=== PATIENT | male | born 1950 | race Caucasian/White ===

== ENCOUNTER → 2018-05-25 | Outpatient (CLI) | payer OTHER | END | disposition home or self-care (01) | LOC: OIH 14:48 | PROVIDERS: ATTEND Internal Medicine | DX: I10 Essential (primary) hypertension (principal); M47.815 Spondylosis without myelopathy or radiculopathy, thoracolumbar region | CPT/HCPCS: 71046 ==

== ENCOUNTER → 2019-04-29 | Outpatient (CLI) | payer OTHER | END | disposition home or self-care (01) | LOC: OIH 10:40 | PROVIDERS: ATTEND Internal Medicine | DX: I10 Essential (primary) hypertension (principal) | CPT/HCPCS: 71046 ==

== ENCOUNTER → 2019-05-22 | Outpatient (CLI) | payer OTHER | END | disposition home or self-care (01) | LOC: OIH 15:20 | PROVIDERS: ATTEND Internal Medicine | DX: M47.26 Other spondylosis with radiculopathy, lumbar region (principal); M25.78 Osteophyte, vertebrae; M48.061 Spinal stenosis, lumbar region without neurogenic claudication | CPT/HCPCS: 72100 ==

== ENCOUNTER → 2020-06-29 | Outpatient (CLI) | payer OTHER | END | disposition home or self-care (01) | LOC: OIH 09:56 | PROVIDERS: ATTEND Internal Medicine | DX: M47.27 Other spondylosis with radiculopathy, lumbosacral region (principal); M51.37 Other intervertebral disc degeneration, lumbosacral region; M48.07 Spinal stenosis, lumbosacral region | CPT/HCPCS: 72100 ==

== ENCOUNTER → 2020-08-17 | Outpatient (CLI) | payer OTHER | END | disposition home or self-care (01) | LOC: RAH 08:18 | PROVIDERS: ATTEND Internal Medicine | DX: M47.27 Other spondylosis with radiculopathy, lumbosacral region (principal); M48.061 Spinal stenosis, lumbar region without neurogenic claudication | CPT/HCPCS: 72148 ==

== ENCOUNTER → 2020-11-19 | Outpatient (CLI) | payer OTHER | END | disposition home or self-care (01) | LOC: RAH 12:32 | PROVIDERS: ATTEND Internal Medicine | DX: Z09 Encounter for follow-up examination after completed treatment for conditions other than malignant neoplasm (principal); M43.26 Fusion of spine, lumbar region; Z98.1 Arthrodesis status | CPT/HCPCS: 72131 ==

== ENCOUNTER → 2023-02-07 | Outpatient (CLI) | payer OTHER | END | disposition home or self-care (01) | LOC: RAH 09:05 | PROVIDERS: ATTEND Orthopaedic Surgery | DX: M48.02 Spinal stenosis, cervical region (principal); M47.816 Spondylosis without myelopathy or radiculopathy, lumbar region; M48.061 Spinal stenosis, lumbar region without neurogenic claudication; M50.30 Other cervical disc degeneration, unspecified cervical region; Z98.1 Arthrodesis status | CPT/HCPCS: 72141; 72148 ==

== ENCOUNTER → 2023-03-09 | Outpatient (CLI) | payer OTHER | END | disposition home or self-care (01) | LOC: RAH 13:27 | PROVIDERS: ATTEND Internal Medicine | DX: I10 Essential (primary) hypertension (principal) | CPT/HCPCS: 71046 ==

== ENCOUNTER → 2023-03-13 | Outpatient (CLI) | payer OTHER | END | disposition home or self-care (01) | LOC: RAH 12:50 | PROVIDERS: ATTEND Orthopaedic Surgery | DX: M47.816 Spondylosis without myelopathy or radiculopathy, lumbar region (principal); Z98.1 Arthrodesis status; M54.50 Low back pain, unspecified; M48.07 Spinal stenosis, lumbosacral region | CPT/HCPCS: 72131 ==

== ENCOUNTER → 2023-06-16 | Outpatient (CLI) | payer OTHER | END | disposition home or self-care (01) | LOC: RAH 09:20 | DX: M48.07 Spinal stenosis, lumbosacral region (principal); Z98.1 Arthrodesis status | CPT/HCPCS: 72100 ==

== ENCOUNTER → 2023-09-11 | Outpatient (CLI) | payer OTHER | END | disposition home or self-care (01) | LOC: RAH 12:33 | PROVIDERS: ATTEND Orthopaedic Surgery | DX: M41.85 Other forms of scoliosis, thoracolumbar region (principal); Z98.890 Other specified postprocedural states; Z98.1 Arthrodesis status | CPT/HCPCS: 72082 ==

== ENCOUNTER → 2024-06-04 | Outpatient (CLI) | payer OTHER ==
--- NOTE | 2024-06-04 14:49 | HMCIMG ---
Exam Type: CT LUMBAR SPINE W/O CONTRAST Clinical Information: Arthrodesis Comparison: None Findings: Status post posterior fusion of the entire lumbar spine and fusion L1-L5 with adequate postoperative alignment. Severe osteopenia. No acute fractures or dislocations. No other abnormalities. IMPRESSION: Postoperative changes and osteopenia.
--- NOTE | 2024-06-04 16:00 | HMCIMG ---
Exam Type: MR SPINAL CANAL, LUMBAR WO CON Clinical Information: Z98.1 Arthrodesis status Comparison: None Findings: Status post posterior fusion of the entire lumbar spine and fusion L1-L5 discs with adequate postoperative alignment. Severe osteopenia. No acute fractures or dislocations. No other abnormalities. Disc spaces are adequately aligned without disc protrusions or extrusions. No obvious spinal canal abnormalities are seen, although the canal and the neural foramina at all levels are partially obscured by metallic blooming artifact. IMPRESSION: Post operative changes as noted without obvious complications.
== END | disposition home or self-care (01) ==
LOC: RAH 13:11
PROVIDERS: ATTEND Physician Assistant
DX: M43.26 Fusion of spine, lumbar region (principal); M85.88 Other specified disorders of bone density and structure, other site; Z98.1 Arthrodesis status; Z98.890 Other specified postprocedural states
CPT/HCPCS: 72131; 72148

== ENCOUNTER → 2024-08-28 | Outpatient (CLI) | payer OTHER ==
--- NOTE | 2024-08-28 16:57 | HMCIMG ---
CHEST 2VWS REASON: Essential (primary) hypertension COMPARISON: 03/09/2023 FINDINGS: Two views of the chest were obtained. Lungs are clear. Heart size is normal. There is no pulmonary vascular congestion. Mediastinum and bony thorax appear unremarkable. IMPRESSION: Normal two view chest x-ray.
== END | disposition home or self-care (01) ==
LOC: RAH 15:05
PROVIDERS: ATTEND Internal Medicine
DX: I10 Essential (primary) hypertension (principal)
CPT/HCPCS: 71046

== ENCOUNTER → 2024-12-06 | Outpatient (CLI) | payer OTHER ==
--- NOTE | 2024-12-06 10:55 | HMCIMG ---
Exam Type: SCOLIOSIS 2-3VW Clinical Information: S/P SPINAL FUSION Comparison: None Findings: The entire spine is well visualized. There is no significant curvature. All pedicles and spinous processes are intact. No fracture or bony lesions are identified. There is fusion from L1 to S1 with disc spacers and interpedicular screws and rods in place. The remaining disc spaces are normal. The visualized soft tissues are unremarkable. IMPRESSION: No scoliosis. Fusion of the lumbar spine with orthopedic hardware in place.
== END | disposition home or self-care (01) ==
LOC: RAH 09:30
PROVIDERS: ATTEND Orthopaedic Surgery
DX: M43.27 Fusion of spine, lumbosacral region (principal); Z98.1 Arthrodesis status
CPT/HCPCS: 72082